=== PATIENT | male | born 1940 | race Caucasian/White ===

== ENCOUNTER 2017-01-08 13:21 | Day surgery (SDC) | payer OTHER ==
[2017-01-08 15:05] LABS: ANION GAP 12 mEq/L (8-16); CALCIUM 9.7 mg/dL (8.5-10.4); CARBON DIOXIDE 26 mEq/l (22-31); CHLORIDE 103 mEq/L (97-110); GLOMERULAR FILTRATION RATE > 60; GLUCOSE 142 mg/dL (70-100); POTASSIUM 4.9 mEq/L (3.5-5.2); SODIUM 141 mEq/L (134-144)
[2017-01-08] MEDS ORDERED: fentaNYL 100 MCG/2 ML INJ ONE (15:08)
[2017-01-08] MEDS ORDERED: PROPOFOL/EMULSION 500 MG/50 ML BOTTLE IV ONE (15:08)
[2017-01-08] MEDS ORDERED: LIDOCAINE 2% 100 MG/5 ML SYR ONE (15:08)
[2017-01-08] MEDS ORDERED: LR 1,000 ML IV SCH (16:00)
--- NOTE | 2017-01-09 17:03 | GPN ---
[f rep st] PROCEDURE NOTE DATE OF PROCEDURE: 01/08/2017 PROCEDURE: Esophagogastroduodenoscopy with biopsy and dilation. INDICATION: The patient is a 76-year-old male who presents for screening of esophageal varices, as well as symptoms of dysphagia. He presents for further evaluation. CONSENT: Risks, benefits, and alternatives of the procedure were discussed in great detail with the patient. Risk of infection, bleeding, perforation, and sedation were discussed. All questions answered. Informed consent obtained. MEDICATIONS: Propofol. Please see Anesthesia record for details. ESTIMATED BLOOD LOSS: Insignificant. ESOPHAGOGASTRODUODENOSCOPY EXAMINATION: The Olympus upper endoscope was introduced into the mouth and advanced to the esophagus. The proximal, mid, and distal esophagus were normal in appearance. No esophageal varices were noted. The patient was noted to have a mild stricture at the gastroesophageal junction , which was empirically dilated from 15 to 18 mm. The stomach was entered and closely examined, including retroflexed views of angularis , cardia, and fundus. Portal gastropathy was noted in the fundus of the stomach. The mucosa in the antrum and body was erythematous and biopsies were taken. The duodenal bulb and second portion of duodenum were normal in appearance. IMPRESSION: 1. Mild gastroesophageal stricture, status post dilation. 2. Gastritis, status post biopsy. 3. Portal gastropathy. RECOMMENDATIONS: 1. Follow up on biopsy results. 2. Repeat EGD in 1 year. 3. PPI therapy. /[id number]/MODL MTDD
== END 2017-01-08 17:05 | disposition home or self-care (01) ==
LOC: FSGY 13:21
PROVIDERS: ATTEND Internal Medicine Gastroenterology
PROC: 0DB68ZX Excision of Stomach, Via Natural or Artificial Opening Endoscopic, Diagnostic (ICD-10-PCS; principal; 2017-01-08 14:15)
PROC: 0D718ZZ Dilation of Upper Esophagus, Via Natural or Artificial Opening Endoscopic (ICD-10-PCS; principal; 2017-01-08 14:15)
DX: I85.00 Esophageal varices without bleeding (principal); K22.2 Esophageal obstruction; K29.70 Gastritis, unspecified, without bleeding; E11.9 Type 2 diabetes mellitus without complications; E78.5 Hyperlipidemia, unspecified; J44.9 Chronic obstructive pulmonary disease, unspecified; Z99.81 Dependence on supplemental oxygen; E03.9 Hypothyroidism, unspecified; Z87.891 Personal history of nicotine dependence; I10 Essential (primary) hypertension
CPT/HCPCS: 43239; 43249; C1726; J2001; J2704; J3010

== ENCOUNTER 2018-03-11 12:08 | Day surgery (SDC) | payer MEDICARE, OTHER ==
[2018-03-11] MEDS ORDERED: LIDOCAINE 1% 2 ML INJ ID PRN (12:26)
[2018-03-11] MEDS ORDERED: LR 1,000 ML IV ONE (12:26)
--- NOTE | 2018-03-11 13:38 | PDANEPAE ---
ANE History of Present Illness Screening ANE Past Medical History - Cardiovascular History Hx Hypertension: No Hx Arrhythmias: No Hx Chest Pain: No Hx Coronary Artery / Peripheral Vascular Disease: No Hx CHF / Valvular Disease: No Hx Palpitations: No - Pulmonary History Hx COPD: Yes Hx Asthma/Reactive Airway Disease: No Hx Recent Upper Respiratory Infection: No Hx Oxygen in Use at Home: Yes Hx Sleep Apnea: No Pulmonary History Comment: OXYGEN SINCE 2011 - Neurologic History Hx Cerebrovascular Accident: No Hx Seizures: No Hx Dementia: No Neurologic History Comment: HX OF BACK SURGERIES X4. STG 1 OF SPINAL CORD STIMULATOR DONE 11/20/13 - Endocrine History Hx Diabetes: Yes Endocrine History Comment: NIDDM - Renal History Hx Renal Disorders: No - Liver History Hx Hepatic Disorders: Yes Hepatic History Comment: LIVER LOOKS LIKE HE DRINKS FOREVER PER MD BUT HE STATES HE HASN'T DRANK - Neurological & Psychiatric Hx Hx Neurological and Psychiatric Disorders: Yes Neurological / Psychiatric History Comment: CHRONIC PAIN - Cancer History Hx Cancer: No - Congenital Disorder History Hx Congenital Disorders: No - GI History Hx Gastrointestinal Disorders: Yes Gastrointestinal History Comment: DIFFICULTY SWALLOWING FOOD CATCHES. REFLUX. CONSTIPATION - Other Health History Other Health History: BILATERAL LOWER LEG EDEMA. ANEMIA - Chronic Pain History Chronic Pain: Yes (LOWER BACK/LEGS PAIN) - Surgical History Prior Surgeries: LT CAROTID ENDARECTOMY 09/2015 [place]. SPINAL CORD STIMULATOR 11/2013. 4 BACK SURGERIES LAST BEING IN 06/2012. [facility]. [facility]. CARPAL TUNNEL SURGERY BOTH HANDS. STG 1 OF SPINAL STIMULATOR DONE ON 11/20/13 ANE Review of Systems Review of Systems: ANE Patient History - Allergies Allergies/Adverse Reactions: No Known Allergies Allergy (Unverified 11/14/13 11:35) - Home Medications Home Medications: Ergocalciferol [Vitamin D2 (*)] 50,000 unit PO DAILY06 07/15/12 [Last Taken 1 Month Ago ~02/09/18] Hydrocodone/Acetaminophen [Hydrocodon-Acetaminoph 7.5-325] 1 each PO QID PRN 14/08 [Last Taken 03/11/18 08:00] Levothyroxine [Synthroid 137 mcg (*)] 1 each PO DAILY06 07/15/12 [Last Taken 05/14] metFORMIN HCL [Glucophage 500 mg (*)] 1,000 mg PO BIDMEAL 11/19/12 [Last Taken 1 Month Ago ~02/09/18] Aspirin DAILY 01/02/17 [Last Taken 1 Month Ago ~02/09/18] Atorvastatin Calcium DAILY06 01/02/17 [Last Taken 1 Month Ago ~02/09/18] Furosemide DAILY06 01/02/17 [Last Taken 1 Month Ago ~02/09/18] Pepcid DAILY06 01/02/17 [Last Taken 1 Month Ago ~02/09/18] Senna-S Tablet DAILY06 01/02/17 [Last Taken 1 Month Ago ~02/09/18] Sertraline HCl DAILY06 01/02/17 [Last Taken 1 Month Ago ~02/09/18] Spironolactone DAILY06 01/02/17 [Last Taken 1 Month Ago ~02/09/18] Tamsulosin HCl DAILY06 01/02/17 [Last Taken 1 Month Ago ~02/09/18] - NPO status NPO Since - Liquids (Date): 03/11/18 NPO Since - Liquids (Time): 08:00 NPO Since - Solids (Date): 03/10/18 NPO Since - Solids (Time): 23:00 - Smoking Hx Smoking Status: Former smoker - Family Anes Hx Family Hx Anesthesia Complications: NONE ANE Labs/Vital Signs - Vital Signs Blood Pressure: 157/69 Heart Rate: 66 Respiratory Rate: 20 O2 Sat (%): 98 Height: 177.8 cm Weight: 102.058 kg ANE Physical Exam - Airway Neck exam: decreased ROM Mallampati Score: Class 2 Mouth exam: normal dental/mouth exam - Pulmonary Pulmonary: no respiratory distress - Cardiovascular Cardiovascular: regular rate and rhythym - ASA Status ASA Status: III ANE Anesthesia Plan Anesthesia Plan: MAC
[2018-03-11] MEDS ORDERED: LIDOCAINE 2% 5 ML SDV ONE (13:44)
[2018-03-11] MEDS ORDERED: PROPOFOL 200 MG/20 ML VIAL ONE ×2 (13:44)
[2018-03-11] MEDS ORDERED: NALOXONE HCL 0.4 MG/ML INJ IVP PRN ×2 (14:16→14:24)
--- NOTE | 2018-03-11 14:17 | PDGENHP ---
History & Physical Chief Complaint: esopahgeal varices/dysphagia History of Present Illness: 77 year old male with liver cirrhosis presents for evaluation of dysphagia/esophageal varices. Pertinent Past, Social, Family History: PMHx: Cirrhosis, DM, HTN, CAD Relevant Physical Exam: HEENT: anicteric. CV: RRR +s1s2. Lungs: CTAB. Abd: soft, nt, + BS Cardiorespiratory Assessment: ASA 3
[2018-03-11] MEDS ORDERED: INDOMETHACIN 50 MG SUPP PR PRN (14:18)
[2018-03-11] MEDS ORDERED: fentaNYL 100 MCG/2 ML INJ IVP PRN (14:24)
--- NOTE | 2018-03-11 14:24 | POSTANESTH ---
Post Anesthetic Evaluation Cardiovascular Status: Similar to Pre-Op Cond Respiratory Status: Similar to Pre-op Cond. Level of Consciousness/Mental Status: Alert and Oriented Pain Control: Adequate, Prn Tx Ordered Nausea/Vomiting Control: Adequate, Prn Tx Ordered Complications Possibly Related to Anesthesia: None Noted
[2018-03-11] MEDS ORDERED: NS 500 ML IV SCH (14:30)
[2018-03-11] MEDS ORDERED: fentaNYL 100 MCG/2 ML INJ ONE (14:31)
--- NOTE | 2018-03-11 14:36 | GIREPORT ---
[facility] - Endoscopy Department Patient Name: Aly Brandt Procedure Date: 03/11/2018 1:32 PM Patient Type: Outpatient Attending MD/ ER Physician: Oseas Robertson MD Procedure: Upper GI endoscopy Indications: Dysphagia, Cirrhosis rule out esophageal varices Patient Profile: 77 year old male with cirrhosis presents for evaluation of dysphagia/ surveillance for eosphageal varices. Providers: Oseas Robertson MD Medicines: Monitored Anesthesia Care Complications: No immediate complications. Estimated blood loss: Minimal. Description of Procedure: After obtaining informed consent, the endoscope was passed under direct vision. Throughout the procedure, the patient's blood pressure, pulse, and oxygen saturations were monitored continuously. The Endoscope was intro duced through the mouth, and advanced to the second part of duodenum. The [facility] er GI endoscopy was accomplished without difficulty. The patient tolerated e procedure well. Findings: The examined esophagus was normal. Several biopsies were obtained in e middle third of the esophagus with cold forceps for histology. A TTS dilator was passed through the scope. Empiric dilation with a 15-16.5-18 mm balloon dilator was performed to 18 mm in the lower third of the esophagus. Portal hypertensive gastropathy was found in the cardia, in the gastric fundus and in the gastric body. Patchy mildly erythematous mucosa was found in the entire examined stom ach. Biopsies were taken with a cold forceps for histology. One cratered duodenal ulcer with no stigmata of bleeding was found in t he duodenal bulb. The lesion was 20 mm in largest dimension. Estimated Blood Loss: Estimated blood loss was minimal. Post Op Diagnosis: - Normal esophagus. - Portal hypertensive gastropathy. - Erythematous mucosa in the stomach. Biopsied. - One duodenal ulcer with no stigmata of bleeding. - Several biopsies were obtained in the middle third of the esophagus. - Empiric dilation performed in the lower third of the esophagus. - Etiology? Suspect dysphagia from reflux. Recommend PPI BID due to ref lux and duodenal ulcer. No NSAIDs. Recommendation: - Discharge patient to home (with escort). - Resume previous diet. - Continue present medications. - Use a proton pump inhibitor PO BID for 2 months than change to daily - Follow an antireflux regimen. - Repeat upper endoscopy in 1 year for surveillance. - No aspirin, ibuprofen, naproxen, or other non-steroidal anti-inflamma tory drugs. - Thank you for allowing me to participate in the care of your patient. Attending Participation: I personally performed the entire procedure. Oseas Robertson MD Oseas Robertson MD 03/11/2018 2:36:26 PM This report has been signed electronicallyOseas Robertson MD Number of Addenda: 0 Note Initiated On: 03/11/2018 1:32 PM [email or web address]
[2018-03-11 15:26] VITALS: BP 140/57
== END 2018-03-11 15:41 | disposition home or self-care (01) ==
LOC: FSGY 12:08
PROVIDERS: ATTEND Internal Medicine Gastroenterology
PROC: 0DB68ZX Excision of Stomach, Via Natural or Artificial Opening Endoscopic, Diagnostic (ICD-10-PCS; principal; 2018-03-11 14:00)
PROC: 0DB28ZX Excision of Middle Esophagus, Via Natural or Artificial Opening Endoscopic, Diagnostic (ICD-10-PCS; principal; 2018-03-11 14:00)
DX: R13.10 Dysphagia, unspecified (principal); K31.89 Other diseases of stomach and duodenum; K74.60 Unspecified cirrhosis of liver
CPT/HCPCS: 43239; C1726; J2704; J3010

== ENCOUNTER 2018-03-18 20:37 | Inpatient (IN) | payer OTHER ==
[2018-03-18] MEDS ORDERED: NS 1,000 ML IV ONE (21:25)
--- NOTE | 2018-03-18 21:52 | EDPHY ---
H & P Stated Complaint: spitting up blood Time Seen by Provider: 03/18/18 21:54 HPI/ROS: HPI CHIEF COMPLAINT: 'Spitting up blood" HISTORY OF PRESENT ILLNESS: 77-year-old male, history of liver cirrhosis, diabetes, hypertension coronary artery disease presents emergency room stating that he spitting up blood. He denies coughing up blood, denies vomiting, denies hematemesis however he states since early this afternoon he has had multiple episodes of bright red blood. He is unable to quantify. Patient very poor historian. He states the blood pulls in the back of his throat and then he spits it out. He is unsure what coming from his lungs or GI tear track. Past Medical History: Past medical history significant for diabetes, liver cirrhosis, hypertension, coronary artery disease Past Surgical History: Recent EGD by Dr. Robertson for esophageal varices. Gastritis, portal gastropathy Social History: Denies daily use of drugs alcohol tobacco. Family History: Noncontributory ROS REVIEW OF SYSTEMS: Limited as the patient very poor story Exam Constitutional elderly, frail, poor historian, nontoxic triage nursing summary reviewed, vital signs reviewed, awake/alert. Eyes normal conjunctivae and sclera, EOMI, PERRLA. HENT normal inspection, atraumatic, moist mucus membranes, no epistaxis, neck supple/ no meningismus, no raccoon eyes. Respiratory clear to auscultation bilaterally, normal breath sounds, no respiratory distress, no wheezing. Cardiovascular rate normal, regular rhythm, no murmur, no edema, distal pulses normal. Gastrointestinal soft, non-tender, no rebound, no guarding, normal bowel sounds, no distension, no pulsatile mass. Genitourinary no CVA tenderness. Musculoskeletal no midline vertebral tenderness, full range of motion, no calf swelling, no tenderness of extremities, no meningismus, good pulses, neurovascularly intact. Skin pink, warm, & dry, no rash, skin atraumatic. Neurologic awake, alert and oriented x 3, AAOx3, moves all 4 extremities equally, motor intact, sensory intact, CN II-XII intact, normal cerebellar, normal vision, normal speech. Psychiatric normal mood/affect. Heme/Lymph/Immune no lymphadenopathy. Differential Diagnosis: Includes but is not limited to in a particular order acute GI bleed, esophageal bleed, variceal bleed, gastric bleed, hemoptysis, hematemesis Medical Decision Making: Plan for this patient the patient is unsure exactly where the blood is coming from he denies coughing or vomiting blood however states bright red blood pulls in the posterior pharynx and then he spits it up. Given the history of liver disease and esophageal varices is highly suspicious for esophageal variceal bleed. Will place on Protonix and octreotide. Will admit. Type and screen. Check H&H. Watch closely for hemodynamics. Re-evaluation: Reviewed EGD report no esophageal varices seen. Duodenal ulcer present. Gastritis. Will only give Protonix. Will stop octreotide. X-ray reviewed shows no evidence of pneumonia or explanation for possible hemoptysis. CBC is unremarkable H&H are stable. Plan will be for admission to the hospital for potential GI bleed. IV Protonix as been ordered. 2250: Spoke with the hospitalist service Dr. Holman, agrees to admit the patient. Patient here in emergency room is hemodynamically stable there has been no evidence of further bleeding. No hemoptysis or vomiting of blood. EGD reviewed. Did have peptic ulcer. I have ordered and Protonix. Type and screen. Will admit for observation. Source: Patient, Family - Personal History Current Tetanus/Diphtheria Vaccine: Yes Current Tetanus Diphtheria and Acellular Pertussis (TDAP): Yes - Medical/Surgical History Hx Chronic Respiratory Disease: Yes Hx Diabetes: Yes Other PMH: dm2, gerd, copd, hypothyroid, hyperlipidemia, galbladder. back fusion. corotid stenosis - Social History Smoking Status: Former smoker Constitutional: Initial Vital Signs Temperature (C) 36.9 C 03/18/18 20:46 Heart Rate 112 H 03/18/18 20:46 Respiratory Rate 20 03/18/18 20:46 Blood Pressure 145/75 H 03/18/18 20:46 O2 Sat (%) 94 03/18/18 20:46 O2 Delivery Mode Nasal Cannula O2 (L/minute) 3 Allergies/Adverse Reactions: No Known Allergies Allergy (Unverified 11/14/13 11:35) Home Medications: Medication Instructions Recorded HYDROcodone/APAP 10/325 [[place] 1 tab PO Q4-6PRN PRN 03/19/18 10/325 (*)] Levothyroxine [Synthroid 175 mcg 175 mcg PO DAILY06 03/19/18 (*)] Medical Decision Making - Data Points Laboratory Results: Laboratory Results 03/19/18 04:45 03/19/18 04:45 Medications Given: Acetaminophen (Tylenol) 650 mg PO Q4HRS PRN PRN Reason: Pain, Mild/Fever, Can Take PO Stop: 09/14/18 23:08 Last Admin: 03/20/18 14:14 Dose: 650 mg Hydrocodone Bitart/Acetaminophen ([place] 10/325) 1 tab PO Q4H PRN PRN Reason: Pain, Breakthrough Stop: 03/29/18 09:20 Last Admin: 03/20/18 19:20 Dose: 1 tab Atorvastatin Calcium (Lipitor) 20 mg PO DAILY [facility] Stop: 09/16/18 15:44 Last Admin: 03/20/18 17:19 Dose: 20 mg Calcium Carbonate (Tums) 500 mg PO PRN PRN PRN Reason: HEART BURN Stop: 09/15/18 17:54 Last Admin: 03/19/18 18:30 Dose: 500 mg Insulin Human Lispro (Humalog Lispro) 0 unit SC TIDMEAL LEANDRA PRN Reason: Protocol Stop: 09/15/18 07:59 Last Admin: 03/20/18 17:24 Dose: Not Given Levothyroxine Sodium (Synthroid) 175 mcg PO DAILY06 [facility] Stop: 09/16/18 05:59 Last Admin: 03/20/18 05:55 Dose: 175 mcg Pantoprazole Sodium (Protonix) 40 mg PO BID [facility] Stop: 09/15/18 09:29 Last Admin: 03/20/18 20:29 Dose: 40 mg Senna/Docusate Sodium (Senokot-S) 1 - 2 tab PO BID LEANDRA PRN Reason: Protocol Stop: 09/15/18 08:59 Last Admin: 03/20/18 20:29 Dose: 2 tab Discontinued Medications Hydrocodone Bitart/Acetaminophen ([place] 10/325) 1 tab PO Q6HRS PRN PRN Reason: Pain, Severe Able to Take PO Stop: 03/29/18 02:17 Last Admin: 03/19/18 09:24 Dose: 1 tab Fentanyl (Sublimaze) 50 mcg IVP EDNOW ONE Stop: 03/18/18 22:51 Last Admin: 03/18/18 23:03 Dose: 50 mcg Sodium Chloride (Ns) 1,000 mls @ 0 mls/hr IV ONCE ONE; Wide Open PRN Reason: Protocol Stop: 03/18/18 21:26 Last Admin: 03/18/18 22:30 Dose: 1,000 mls Lactulose (Cephulac) 20 gm PO ONCE ONE Stop: 03/19/18 09:01 Last Admin: 03/19/18 08:01 Dose: 20 gm Morphine Sulfate (Morphine) 1 - 2 mg IVP Q3HRS PRN PRN Reason: Pain, Breakthrough Stop: 03/28/18 23:08 Last Admin: 03/19/18 00:47 Dose: 1 mg Morphine Sulfate (Morphine) 1 - 2 mg IVP Q2HRS PRN PRN Reason: Pain, Breakthrough Stop: 03/28/18 23:08 Last Admin: 03/19/18 07:34 Dose: 1 mg Octreotide Acetate (Octreotide Acetate) 50 mcg IVP ONCE ONE Stop: 03/18/18 22:00 Last Admin: 03/19/18 00:41 Dose: Not Given Pantoprazole Sodium (Protonix) 40 mg IVP EDNOW ONE Stop: 03/18/18 22:00 Last Admin: 03/18/18 22:30 Dose: 40 mg Point of Care Test Results: Chemistry 03/19/18 07:38 POC Glucose 92 mg/dL mg/dL (70-100) Departure - Departure Disposition: [facility] Inpatient Acute Clinical Impression: Upper GI bleeding Condition: Fair
[2018-03-18] MEDS ORDERED: PANTOPRAZOLE SODIUM 40 MG VIAL IVP ONE (21:59)
[2018-03-18] MEDS ORDERED: OCTREOTIDE ACETATE 50 MCG/ML INJ IVP ONE (21:59)
[2018-03-18] MEDS ORDERED: OCTREOTIDE ACETATE 500 MCG in NS 50 ML IV SCH (22:00)
[2018-03-18 22:40] LABS: PLATELET COUNT 113 10^3/uL (150-400)
[2018-03-18] MEDS ORDERED: fentaNYL 100 MCG/2 ML INJ IVP ONE (22:50)
[2018-03-18] MEDS ORDERED: ONDANSETRON DISINTEGRATING 4 MG TAB PO PRN (23:09)
[2018-03-18] MEDS ORDERED: ONDANSETRON 4 MG/2 ML VIAL IVP PRN (23:09)
[2018-03-18 23:16] LABS: INR 1.4 (0.83-1.16); PROTIME(PATIENT) 17.3 SEC (12.0-15.0)
[2018-03-19] MEDS ORDERED: POLYETHYLENE GLYCOL 3350 17 GM PKT PO PRN (02:15)
[2018-03-19] MEDS ORDERED: BISACODYL 10 MG SUPP PR PRN (02:15)
[2018-03-19] MEDS ORDERED: LACTULOSE 20 GM/30 ML UDCUP PO PRN (02:15)
[2018-03-19] MEDS ORDERED: MAGNESIUM HYDROXIDE 30 ML UDCUP PO PRN (02:15)
[2018-03-19] MEDS: HYDROCODONE/APAP 10/325 TAB PO PRN ×4 (02:40→22:24)
--- NOTE | 2018-03-19 04:11 | PDGENHP ---
History and Physical - Chief Complaint Spitting up blood, Abdominal pain - History of Present Illness Source-patient is a fair historian provides majority of the history. EMR was reviewed and case discussed with ED provider. HPI-this is a pleasant 77-year-old gentleman with past medical history significant for cirrhosis thought due to non alcoholic fatty liver disease, duodenal ulcer, splenomegaly, HLD, BPH, hypothyroidism, chronic back pain, COPD , dm 2, CAD who presents emergency department today with complaints of spitting up blood and abdominal pain. Patient denies any cough no hemoptysis, no hematemesis a minimal amount of nausea without any active vomiting. Patient reports that he just was spitting up blood. He states that he has been having some constipation last BM was 2 days ago but he does not believe there was any melena hematochezia. Patient denies any epistaxis. No sore throat. Patient denies any cough. Patient is describing epigastric right upper quadrant abdominal pain as 8-10 dull aching pain that is worse from his baseline. Patient reports that he always has right upper quadrant abdominal pain but this time it is increasingly unmanageable. Patient also reports that he underwent EGD on 03/11/[address] Robertson. Findings were noted for esophageal stricture successfully dilated, hypertensive portal gastropathy, duodenal ulcer. No esophageal varices were identified. History Information - Allergies/Home Medication List Allergies/Adverse Reactions: No Known Allergies Allergy (Unverified 11/14/13 11:35) Home Medications: Hydrocodone/Acetaminophen [Hydrocodon-Acetaminoph 7.5-325] 1 each PO QID PRN 14/08 [Last Taken 03/11/18 08:00] Senna-S Tablet DAILY06 01/02/17 [Last Taken 1 Month Ago ~02/09/18] I have personally reviewed and updated: family history, medical history, social history, surgical history - Past Medical History Additional medical history: Cirrhosis secondary to non alcoholic fatty liver disease. Gastritis, portal hypertensive gastropathy. Duodenal ulcer. Splenomegaly. BPH. HLD. Chronic back pain on chronic opiate therapy. Hypothyroidism. COPD. Dm 2. CAD. Neuropathy in the upper and lower extremities. - Surgical History Additional surgical history: Cholecystectomy, back surgery x6, appendectomy, carotid endarterectomy, rectal surgery including hemorrhoidectomy and abscess I& D, colonoscopy an EGD - Family History Additional family history: Sister with history colonic polyps,. mother with history of breast cancer, diabetes, COPD. Father-mi - Social History Smoking Status: Former smoker Tobacco Use: Cigarettes Alcohol Use: Sober (Quit drinking 1980) Drug Use: Marijuana (CBD oil) Additional social history: Patient is widowered. His daughter lives in town and is supportive. Cor status-full Review of Systems Review of Systems: ROS: 10pt was reviewed & negative except for what was stated in HPI & below Constitutional: Denies: chills, fever EENMT: Reports: no symptoms Cardiac: Reports: no symptoms Respiratory: Reports: shortness of breath (Chronic and at baseline). Denies: cough Gastrointestinal: Reports: nausea. Denies: vomitting, diarrhea Genitourinary: Reports: other (Ulceration) Muscolosketal: Reports: no symptoms Skin: Reports: other (Chronic lower extremity venous stasis) Neurological: Reports: headache. Denies: anxiety, depressed Hematologic/Lymphatic: Reports: no symptoms Physical Exam Physical Exam: Selected Entries 03/18/18 20:46 Blood Pressure Automatic Method Heart Rate 112 H Respiratory 20 Rate O2 Sat (%) 94 Temperature (C) 36.9 C Blood Pressure 145/75 H Mean Arterial 98 Pressure (MAP) O2 (L/minute) 3 O2 Delivery Nasal Cannula Mode Temperature Oral Source Temp Pulse Resp BP Pulse Ox 37.1 C 84 20 150/64 H 95 03/19/18 00:40 03/19/18 00:40 03/19/18 00:40 03/19/18 00:40 03/19/18 00:40 O2 (L/minute) 4 Constitutional: no apparent distress, chronically ill appearing, obese, uncomfortable, other (NAD. Patient is snoring softly when I enter the room but wakes easily to name. After being woken patient reports that his abdominal pain is increasing and appears more uncomfortable.) Eyes: PERRL, anicteric sclera, EOMI, No scleral injection Ears, Nose, Mouth, Throat: moist mucous membranes, other (No nasal discharge), No poor dentition (Fair condition) Cardiovascular: regular rate and rhythym, no murmur, rub, or gallop, systolic murmur (3/6 systolic murmur), pulses symmetric bilaterally, edema (Trace), other (Kyphotic) Peripheral Pulses: 2+: dorsalis-pedis (R), dorsalis-pedis (L) Respiratory: no respiratory distress, no rales or rhonchi, clear to auscultation , reduced air movement (Slightly decreased air movement bibasilarly.), No expiratory wheeze, No inspiratory crackles, No respiratory distress Gastrointestinal: tenderness, other (Hypoactive bowel sounds with multiple well- healed surgical scars.), No guarding, No rebound, No distension Genitourinary: no bladder tenderness, No hernadez in urethra Skin: warm, normal color, no rashes or abrasions, other (Not jaundiced) Musculoskeletal: generalized weakness Neurologic: AAOx3, sensation intact bilaterally, weakness (Generalized), other ( Grossly nonfocal exam.), No facial droop Psychiatric: interacting appropriately, not encephalopathic, thought process linear, anxious, flat affect, No agitated, No poor insight, No poor memory Lab Data & Imaging Review 03/18/18 22:25 03/18/18 22:25 WBC 5.34 10^3/uL (3.80-9.50) 03/18/18 22:25 RBC 4.17 10^6/uL (4.40-6.38) L 03/18/18 22:25 Hgb 14.2 g/dL (13.7-17.5) 03/18/18 22:25 Hct 42.0 % (40.0-51.0) 03/18/18 22:25 MCV 100.7 fL (81.5-99.8) H 03/18/18 22:25 MCH 34.1 pg (27.9-34.1) 03/18/18 22:25 MCHC 33.8 g/dL (32.4-36.7) 03/18/18 22:25 RDW 14.3 % (11.5-15.2) 03/18/18 22:25 Plt Count 113 10^3/uL (150-400) L 03/18/18 22:25 MPV 11.2 fL (8.7-11.7) 03/18/18 22:25 Neut % (Auto) 38.8 % (39.3-74.2) L 03/18/18 22:25 Lymph % (Auto) 49.8 % (15.0-45.0) H 03/18/18 22:25 King % (Auto) 8.4 % (4.5-13.0) 03/18/18 22:25 Eos % (Auto) 2.4 % (0.6-7.6) 03/18/18 22: Baso % (Auto) 0.4 % (0.3-1.7) 03/18/18 22: Nucleat RBC Rel Count 0.0 % (0.0-0.2) 03/18/18 22: Absolute Neuts (auto) 2.07 10^3/uL (1.70-6.50) 03/18/18 22: Absolute Lymphs (auto) 2.66 10^3/uL (1.00-3.00) 03/18/18: Absolute Monos (auto) 0.45 10^3/uL (0.30-0.80) 03/18/18 22: Absolute Eos (auto) 0.13 10^3/uL (0.03-0.40) 03/18/18: Absolute Basos (auto) 0.02 10^3/uL (0.02-0.10) 03/18/18: Absolute Nucleated RBC 0.00 10^3/uL (0-0.01) 03/18/18: Immature Gran % 0.2 % (0.0-1.1) 03/18/18: Immature Gran # 0.01 10^3/uL (0.00-0.10) 03/18/18 22: PT 17.3 SEC (12.0-15.0) H 03/18/18 22:25 INR 1.40 (0.83-1.16) H 03/18/18 22:25 APTT 33.9 SEC (23.0-38.0) 03/18/18 22:25 Sodium 136 mEq/L (135-145) 03/18/18 22:25 Potassium 4.1 mEq/L (3.3-5.0) 03/18/18 22:25 Chloride 101 mEq/L (97-110) 03/18/18 22:25 Carbon Dioxide 27 mEq/l (22-31) 03/18/18 22:25 Anion Gap 8 mEq/L (8-16) 03/18/18 22:25 BUN 13 mg/dL (7-23) 03/18/18 22:25 Creatinine 0.8 mg/dL (0.7-1.3) 03/18/18 22:25 Estimated GFR > 60 03/18/18 22:25 Glucose 118 mg/dL (70-100) H 03/18/18 22:25 Calcium 9.3 mg/dL (8.5-10.4) 03/18/18 22:25 Total Bilirubin 2.1 mg/dL (0.1-1.4) H 03/18/18 22:25 Conjugated Bilirubin 0.6 mg/dL (0.0-0.5) H 03/18/18 22:25 Unconjugated Bilirubin 1.5 mg/dL (0.0-1.1) H 03/18/18 22:25 AST 62 IU/L (17-59) H 03/18/18 22:25 ALT 27 IU/L (21-72) 03/18/18 22:25 Alkaline Phosphatase 70 IU/L (38-126) 03/18/18 22:25 Total Protein 7.9 g/dL (6.3-8.2) 03/18/18 22:25 Albumin 3.7 g/dL (3.5-5.0) 03/18/18 22:25 Lipase 123 IU/L (23-300) 03/18/18 22:25 Imaging Review: Chest, AP and Lateral, 21:32 History: Hemoptysis Comparison: Portable exam July 29, 2012 Findings: The patient has a prominent kyphosis. There is some chronic linear scarring in each lung base. Lungs are clear, without infiltrate or new consolidation. Heart size and pulmonary vascularity are normal. There is no adenopathy or mass lesion. There is no pleural effusion. Since the prior exam there is a new TENS unit overlying the mid-lower thoracic spine, chest above a moderate lower thoracic compression abnormality. Lumbar orthopedic fusion hardware is again present and incompletely included on the study. Impression: No evidence for pneumonia. Visualized and Interpreted imaging results: Yes Assessment & Plan Assessment: 77-year-old gentleman with history of nonalcoholic fatty liver disease with cirrhosis, duodenal ulcer, portal hypertensive gastropathy, COPD, dm 2 who presents to the ED today complaining of spitting up blood. Upper GI bleeding (Acute) - exact source for bleeding is not had clear. Patient denies any respiratory symptoms no cough. Addition patient without any reports of melena hematochezia or hematemesis. He has been several days patent since patient had a bowel movement. No evidence of obstruction abdomen is quite soft. Hypoactive bowel sounds are present. Patient does have some dried blood on the corners of his lips. Patient does have history of cirrhosis with known duodenal ulcer as well as portal hypertensive gastropathy. He had a stricture that was dilated but did not have any signs of varices. Will admit patient for H&H monitoring in any further evidence of GI bleeding. Patient was given Protonix in the ED. Will plan to continue this. Patient's GI recommendations note that given patient's history of ulcer and gastric pathology is recommended that he takes 40 of Protonix twice daily. Plan to monitor and further consideration to contact Dr. Robertson patient's primary GI if any questions per day team. Abdominal pain - patient is reporting rather upper quadrant abdominal pain acute on chronic. Unclear if patient has developed an eye acute. Hepatitis versus just worsening of his baseline pain from the liver. Status post cholecystectomy. Patient without any abdominal distention or evidence of obstruction. Will plan to obtain a limited ultrasound initially. Hyperbilirubinemia-patient is status post cholecystectomy. Is reporting acute on chronic right upper quadrant abdominal pain. Will obtain for additional imaging with ultrasound in the morning start. Constipation- bowel regimen has been ordered. Duodenal ulcer as noted on EGD from 03/11/2018. Continue PPI. Portal hypertensive gastropathy will recommend the patient comply with all his medications, diet and instructions Pancytopenia - mildly decreased platelet count which appears to be stable. Chronic medical problems COPD-DuoNeb p.r.n.. Patient without any exacerbation. Does not wear oxygen at home. Dm 2-patient is no longer on metformin is currently not being treated will plan to monitor his blood sugars CAD - resume patient's home medications HLD - continue statin BPH - Flomax p.r.n. Acute on chronic pain - resume patient's Arnold 05/29/2018. Morphine available p.r.n. Hypothyroidism - continue patient's levothyroxine replacement. FEN - NPO after midnight. Patient appears volume overloaded hold IV fluids. Electrolyte monitoring replace if needed. PPX-SCDs. Holding anticoagulation in case that procedure may be indicated. Additionally patient's platelet count is also slightly low. Cor status-full Disposition-patient admitted observation status on the medical floor at this time pending affect pain control and further imaging of right upper quadrant abdominal pain. Patient has not had any additional evidence of bleeding. No reports of epistaxis or hematemesis. Add not quite clear source but does appear to be a scanty amount present. Will try bowel regimen and monitor for any evidence of GI bleeding or melena.
[2018-03-19] MEDS ORDERED: D50W 25 GM/50 ML VIAL IVP PRN (04:37)
[2018-03-19] MEDS: INSULIN LISPRO 100 UNIT/ML SC SCH ×3 (08:01→18:55)
[2018-03-19] MEDS: SENNOSIDES/DOCUSATE SODIUM TAB PO SCH ×3 (08:01→20:48)
[2018-03-19] MEDS ORDERED: LACTULOSE 20 GM/30 ML UDCUP PO ONE (09:00)
[2018-03-19] MEDS ORDERED: HYDROmorphONE/DILAUDID 1 MG/ML INJ IVP PRN (09:27)
--- NOTE | 2018-03-19 09:38 | HOSPPROG ---
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 Back is per his chronic pain without change Objective: Vital Signs Temp Pulse Resp BP Pulse Ox 36.6 C 66 18 139/63 H 100 03/19/18 07:30 03/19/18 07:30 03/19/18 07:30 03/19/18 07:30 03/19/18 07:30 Laboratory Results 03/19/18 04:45 03/19/18 04:45 03/18/18 03/19/18 03/20/18 05:59 05:59 05:59 Intake Total 1000 Output Total 100 Balance 900 PT 17.3 SEC (12.0-15.0) H 03/18/18 22:25 INR 1.40 (0.83-1.16) H 03/18/18 22:25 Old chart reviewed - Recent EGD - biopsies Hpylori negative ABD US - unremarkable - Physical Exam Constitutional: no apparent distress, appears nourished, not in pain Cardiovascular: regular rate and rhythym, no murmur, rub, or gallop Respiratory: no respiratory distress, no rales or rhonchi, clear to auscultation Gastrointestinal: tenderness, guarding, No ascites, No rebound, No distension Skin: no rashes or abrasions, no fluctuance, no induration Neurologic: AAOx3, sensation intact bilaterally Psychiatric: interacting appropriately, not anxious, not encephalopathic, thought process linear ICD10 Worksheet Patient Problems: Problems Problem Status Onset Upper GI bleeding Acute Chronic pain Acute
--- NOTE | 2018-03-19 09:56 | ASMTCASEMG ---
Living Arrangements What is your living Answers: Alone arrangement? Who do you live with? Type Of Residence What kind of residence do Answers: House you live in? Discharge Plan Comments Coordination Status Comments Notes: Pt is a 77 y/o man admitted for spitting up blood and experiencing abdominal pain. Therapies have been ordered and awaiting recommendations. Needs are TBD at this time. CM to follow. Plan: TBD Date Signed: 03/19/2018 09:56 AM Electronically Signed By:MAIK Stein
[2018-03-19] MEDS: PANTOPRAZOLE SODIUM 40 MG TAB PO SCH ×2 (10:03→20:44)
[2018-03-19] MEDS ORDERED: IOPAMIDOL (ISOVUE-300) 100 ML BTL ONE (11:14)
[2018-03-19] MEDS ORDERED: oxyCODONE IR 5 MG TAB PO PRN (13:21)
--- NOTE | 2018-03-19 15:50 | PDMN ---
Medical Necessity Medical necessity: Pt meets INPT criteria per MD as of 03/19/18 and [facility] [place]-05 Abdominal Pain, Undiagnosed (ongoing severe abdominal pain, recent DU and esophageal stricture s/p dilation, cirrhosis d/t STAPLES; hx CAD/PVD s/p CEA).
[2018-03-19] MEDS: CALCIUM CARBONATE 500 MG CHEWABLE TAB PO PRN (18:30)
[2018-03-19] MEDS: ACETAMINOPHEN 325 MG TAB PO PRN (20:44)
[2018-03-20] MEDS: ACETAMINOPHEN 325 MG TAB PO PRN ×2 (01:49→14:14)
[2018-03-20] MEDS: HYDROCODONE/APAP 10/325 TAB PO PRN ×3 (02:38→19:20)
[2018-03-20] MEDS: LEVOTHYROXINE 175 MCG TAB PO SCH (05:55)
[2018-03-20 06:06] LABS: PLATELET COUNT 89 10^3/uL (150-400)
[2018-03-20] MEDS: SENNOSIDES/DOCUSATE SODIUM TAB PO SCH ×2 (09:00→20:29)
[2018-03-20] MEDS: PANTOPRAZOLE SODIUM 40 MG TAB PO SCH ×2 (09:01→20:29)
--- NOTE | 2018-03-20 10:39 | ASMTCMCOM ---
CM Note CM Note Notes: Spoke w/pt, is interested in HC but did not have agency preference. CM sent referral to [facility], pt did not want me to call dtr to discuss, "she has a lot going on." CM also offered [facility], he will think about it, he had it once but did not like food. DC Plan: Home care Date Signed: 03/20/2018 10:38 AM Electronically Signed By:Nicole Beltran RN
[2018-03-20] MEDS: INSULIN LISPRO 100 UNIT/ML SC SCH ×3 (11:33→17:24)
[2018-03-20] MEDS ORDERED: IOPAMIDOL (ISOVUE 370) 100 ML BTL IV ONE (13:01)
--- NOTE | 2018-03-20 15:32 | HOSPPROG ---
Hospitalist Progress Note Assessment/Plan: * Possible intestinal angina -abd pain after eating, weight loss -complete occlusion of SMA - but unclear if stenting would help -consult GI - d/w Dr. 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 * Chronic back pain with continuos narcotic dependency -per patient back pain is unchanged from chronic and separate from abd pain -continue Vicodin prn * CAD/PVD s/p CEA - vasculopath -d/w pharmacy - okay to use statin in patients with compensated cirrhosis Subjective: Abd pain about 1 hour after eating Objective: Vital Signs Temp Pulse Resp BP Pulse Ox 36.6 C 75 16 136/60 H 93 03/20/18 07:51 03/20/18 07:51 03/20/18 07:51 03/20/18 07:51 03/20/18 07:51 Laboratory Results 03/20/18 05:47 03/20/18 05:47 03/19/18 03/20/18 03/21/18 05:59 05:59 05:59 Intake Total 710 300 Output Total 1850 350 Balance -1140 -50 PT 17.3 SEC (12.0-15.0) H 03/18/18 22:25 INR 1.40 (0.83-1.16) H 03/18/18 22:25 CTA abd - complete occlusion of SMA - Physical Exam Constitutional: no apparent distress, appears nourished, not in pain Cardiovascular: regular rate and rhythym, no murmur, rub, or gallop Respiratory: no respiratory distress, no rales or rhonchi, clear to auscultation Gastrointestinal: normoactive bowel sounds, soft, non-tender abdomen, no palpable masses Skin: no rashes or abrasions, no fluctuance, no induration Neurologic: AAOx3, sensation intact bilaterally Psychiatric: interacting appropriately, not anxious, not encephalopathic, thought process linear ICD10 Worksheet Patient Problems: Problems Problem Status Onset Upper GI bleeding Acute Chronic pain Acute
[2018-03-20] MEDS: ATORVASTATIN CALCIUM 20 MG TAB PO SCH (17:19)
[2018-03-21] MEDS: HYDROCODONE/APAP 10/325 TAB PO PRN ×2 (01:18→05:10)
[2018-03-21] MEDS: CALCIUM CARBONATE 500 MG CHEWABLE TAB PO PRN ×2 (01:45→05:10)
[2018-03-21] MEDS: LEVOTHYROXINE 175 MCG TAB PO SCH (05:08)
[2018-03-21 07:42] VITALS: BP 122/70
[2018-03-21] MEDS: INSULIN LISPRO 100 UNIT/ML SC SCH ×2 (08:17→12:31)
[2018-03-21] MEDS: PANTOPRAZOLE SODIUM 40 MG TAB PO SCH (09:07)
[2018-03-21] MEDS: ATORVASTATIN CALCIUM 20 MG TAB PO SCH (09:07)
[2018-03-21] MEDS: SENNOSIDES/DOCUSATE SODIUM TAB PO SCH (09:07)
--- NOTE | 2018-03-21 11:11 | PDIAF ---
- Diagnosis Diagnosis: duodenal ulcer Code Status: Full Code - Medication Management Discharge Medications: Medications to Continue on Transfer HYDROcodone/APAP 10/325 [Bonnie 10/325 (*)] 1 tab PO Q4-6PRN PRN 03/19/18 [Last Taken 03/19/18 02:30] Levothyroxine [Synthroid 175 mcg (*)] 175 mcg PO DAILY06 03/19/18 [Last Taken ] Atorvastatin Calcium [Lipitor 20 mg (*)] 20 mg PO DAILY #30 tab 03/21/18 [Last Taken Unknown] Pantoprazole Sodium [Protonix 40mg (*)] 40 mg PO BID #60 tab 03/21/18 [Last Taken Unknown] Additional Medication Instructions: PPI twice daily for 2 months, then once daily indefinitely Discharge Medications: Refer to the Discharge Home Medication list for PRN reason. - Orders Services needed: Home Care, Registered Nurse, Master Healthcare Management, Physical Therapy, Occupational Therapy Home Care Face to Face: I certify that this patient was under my care and that I had the required [id number] encounter meeting the encounter requirements on the discharge day. My findings support the fact that the patient is homebound as defined in Home Care Face to Face Continued: CMS Chapter 7 Medicare Benefits Manual 30.1.1 , The condition of the patient is such that there exists a normal inability to leave home and consequently, leaving home would require a considerable and taxing effort. Isolation Type: None Oxygen: 3L Diet Recommendation: no restrictions on diet Additional Instructions: Home medication review Home safety eval - Follow Up Care Current Providers and Referrals: DARRELL KIRBY [Primary Care Provider] - As per Instructions
--- NOTE | 2018-03-21 11:24 | ASMTLACE ---
LACE Length of stay for Answers: 2 days current admission Comorbidities - select Answers: Chronic pulmonary disease all that apply Coronary Artery Disease Diabetes (uncontrolled or controlled) Mild liver or renal disease Opioid dependence / Chronic pain Other Notes: HTN; HLD # of Emergency department Answers: 1-2 visits in the last 6 months Score: 15 Date Signed: 03/21/2018 11:23 AM Electronically Signed By:Judith Felix RN
--- NOTE | 2018-03-21 11:26 | ASMTDCNOTE ---
Case Management Discharge Discharge Order Complete? Answers: Yes Patient to Obtain Answers: Independently Medications Transportation Arranged Answers: Family/Friends Faxed Final Orders Answers: Yes Family Notified Answers: Yes Discharge Comments Notes: Patient discharged to home with [facility]. His sister will transport him home. Date Signed: 03/21/2018 11:26 AM Electronically Signed By:Judith Felix RN
--- NOTE | 2018-03-21 17:35 | GDS ---
[f rep st] DISCHARGE SUMMARY DISCHARGE DIAGNOSES: 1. Duodenal ulcer. 2. 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 3. Esophageal stricture, status post dilation. 4. Portal hypertension gastropathy. 5. Varices seen on CAT scan but not evident by esophagogastroduodenoscopy. 6. Cirrhosis due to nonalcoholic steatohepatitis. 7. Chronic back pain with continuous narcotic dependency. 8. Coronary artery disease and peripheral vascular disease, status post previous carotid endarterect nixon. 9. Hyperlipidemia. 10. Chronic obstructive pulmonary disease with chronic respiratory failure, 3 L, chronically. HISTORY: Aly is a 77-year-old male, who presented with mid-abdominal pain. Approximately 1 week prior to admission, he had undergone EGD with Dr. Robertson, where a duodenal ulcer was found as well as a n esophageal stricture that was dilated. Dr. Robertson prescribed a proton pump inhibitor. Upon presenta tion to the hospital, however, the proton pump inhibitor was not on his home medication list and the patient was very confused regarding his medications and why he was taking them. He had a CT scan of the abdomen and pelvis that was negative. We incidentally found a complete occlusion of his superior mesenteric artery but it looks like there is good collateral flow. I spoke with Dr. Gonzalez, who revie wed the EGD images, from his recent EGD, and Dr. Gonzalez felt the duodenal ulcer was quite significant, deep and large, and is likely to cause abdominal pain for the next couple of weeks. Has also been li casey undertreated up until this point, given patient's lack of clarity regarding the indication for t his medication when it was prescribed, and it sounds like he just took a few doses and thought it was p.r.n. He was educated regarding the need for his proton pump inhibitor. He received Protonix thro ughout his hospitalization here. Post-discharge I received a call from his pharmacy and they had Pro tonix listed as an allergy, which we did not have on our records here. I reassured them that he has received 6 doses of Protonix during this hospitalization without any reaction. I wonder if this also may be why the medication did not get carried over when prescribed by Dr. Robertson. I do not think he h as a Protonix allergy. His H pylori was negative. Regarding his vasculopath status, his lipid panel was checked and his LDL is very elevated. I consul rickey with Pharmacy and they investigated that statin use is okay in patients with cirrhosis, so a low- dose of Lipitor was initiated. DISCHARGE MEDICATIONS: Please see computerized record for full detailed list. New medications: 1. Lipitor 20 mg p.o. daily. 2. Protonix 40 mg p.o. b.i.d. ADDITIONAL DISCHARGE INSTRUCTIONS: 1. Proton pump inhibitor b.i.d. for 2 months and then once daily indefinitely. 2. Home Health, PT, OT, VNS for home medication review and home safety eval. 3. Oxygen at 3 L, which is his baseline respiratory status. Greater than 30 minutes' time spent arranging this discharge. Patient seen and examined by me on the date of discharge. /[id number]/[id number]
== END 2018-03-21 13:15 | disposition home health service (06) | DRG 384 ==
LOC: F3E 03-19 00:25 → OBSVTOIN 03-19 09:27
PROVIDERS: ADMIT Family Medicine; ATTEND Family Medicine
DX: K26.9 Duodenal ulcer, unspecified as acute or chronic, without hemorrhage or perforation (principal); F11.20 Opioid dependence, uncomplicated; J96.10 Chronic respiratory failure, unspecified whether with hypoxia or hypercapnia; E86.9 Volume depletion, unspecified; K22.2 Esophageal obstruction; K31.89 Other diseases of stomach and duodenum; I85.00 Esophageal varices without bleeding; K75.81 Nonalcoholic steatohepatitis (NASH); G89.29 Other chronic pain; I25.10 Atherosclerotic heart disease of native coronary artery without angina pectoris; E78.5 Hyperlipidemia, unspecified; J44.9 Chronic obstructive pulmonary disease, unspecified; E11.51 Type 2 diabetes mellitus with diabetic peripheral angiopathy without gangrene; I10 Essential (primary) hypertension; K21.9 Gastro-esophageal reflux disease without esophagitis; E03.9 Hypothyroidism, unspecified; N40.0 Benign prostatic hyperplasia without lower urinary tract symptoms; Z87.891 Personal history of nicotine dependence
CPT/HCPCS: 96374; 97116-GP; 97162-GP; 97166-GO; 97530-GO; 97535-GO; G0378; G8978-GP-CK; G8979-GP-CI; G8987-GO-CJ; G8988-GO-CI; G8989-GO-CI; J2270; J2354; J3010; Q9967